=== PATIENT | male | born 1945 | race Caucasian/White ===

== ENCOUNTER 2018-05-16 10:20 | Outpatient (CLI) | payer MEDICARE, BC ==
--- NOTE | 2018-05-16 15:32 | MRI ---
RIGHT LOWER EXTREMITY MRI WITHOUT IV CONTRAST: HISTORY: A 72-year-old male with a history of right leg pain and right calf pain. History of blood clot, whic h has resolved. FINDINGS: There is some subtle T2 hyperintensity within the medial and lateral gastrocnemius muscles, as well a s the anterior compartment muscles, when compared to the soleus muscle. This is nonspecific but coul d conceivably represent some type of mild nonspecific myositis involving these muscle groups versus s ome associated denervation. No evidence for abscess or abnormal fluid collection. No evidence for m yonecrosis. The visualized tibia and fibula are unremarkable. IMPRESSION: Some nonspecific T2 hyperintensity within the medial and lateral gastrocnemius muscles, as well as th e anterior compartment musculature, nonspecific. This could possibly be seen in association with angelo e focal myositis versus some denervation. No evidence for intramuscular mass, abscess, or abnormal f luid collection. No evidence for myonecrosis. No abnormal marrow signal. POS: [facility]
== END 2018-05-16 10:21 | disposition home or self-care (01) ==
LOC: TBSIIMAG 10:20
PROVIDERS: ATTEND Family Medicine
DX: M79.604 Pain in right leg (principal); R93.7 Abnormal findings on diagnostic imaging of other parts of musculoskeletal system

== ENCOUNTER 2023-02-10 11:00 | Day surgery (SDC) | payer MEDICARE, BC ==
[2023-02-10] MEDS ORDERED: Lidocaine 1% (PF) 30 ML VIAL ONE (11:19)
[2023-02-10] MEDS ORDERED: fentaNYL 50 mcg/mL 1 mL Vial ONE (12:49)
[2023-02-10] MEDS ORDERED: Midazolam HCl 2 mg/2 ml Vial ONE (12:49)
[2023-02-10] MEDS ORDERED: Iopamidol 370 76% 100 ML VIAL ONE (15:04)
== END 2023-02-10 15:25 | disposition home or self-care (01) ==
LOC: SDC 11:00
PROVIDERS: ATTEND Internal Medicine Cardiovascular Disease
PROC: 06H03DZ Insertion of Intraluminal Device into Inferior Vena Cava, Percutaneous Approach (ICD-10-PCS; principal; 2023-02-10)
DX: I82.401 Acute embolism and thrombosis of unspecified deep veins of right lower extremity (principal); I10 Essential (primary) hypertension; E78.5 Hyperlipidemia, unspecified; Z87.891 Personal history of nicotine dependence; Z79.899 Other long term (current) drug therapy; Z88.6 Allergy status to analgesic agent
CPT/HCPCS: 37191; C1769; C1880; C1894; J3010; J2001; J2250; Q9967

== ENCOUNTER 2023-06-17 08:59 | Day surgery (SDC) | payer MEDICARE, BC ==
[2023-06-16 10:59] VITALS: BMI 24.4
[2023-06-17] MEDS ORDERED: Oxymetazoline HCl 0.05% (30 ML BOT) ONE (09:11)
[2023-06-17 09:20] LABS: Hematocrit 46.7 % (42.0-52.0); Hemoglobin 16.4 g/dL (14.0-18.0)
[2023-06-17 09:43] LABS: Anion Gap 16 mmol/L (10-20); BUN (Urea Nitrogen) 25 mg/dL (8.4-25.7); Calc. Creatinine Clearance 53 mL/min (70-130); Calcium 9.6 mg/dL (7.8-10.44); Carbon Dioxide 27 mmol/L (23-31); Chloride 98 mmol/L (98-107); Estimated GFR 51; Glucose 80 mg/dL (83-110); Potassium 3.9 mmol/L (3.5-5.1); Sodium 137 mmol/L (136-145)
[2023-06-17] MEDS ORDERED: EPINEPHrine 1 MG/ML VIAL ONE (09:57)
[2023-06-17] MEDS ORDERED: Triamcinolone 40 MG/ML VIAL ONE (09:57)
[2023-06-17] MEDS ORDERED: Lidocaine 1% (PF) 30 ML VIAL ONE (09:57)
[2023-06-17] MEDS ORDERED: PROPOFOL 20 ML ONE (09:57)
[2023-06-17] MEDS ORDERED: fentaNYL PF 100 MCG/2 ML SYRINGE ONE (09:57)
[2023-06-17] MEDS ORDERED: Lidocaine 1% PF 5 ML VIAL ONE ×2 (09:59→10:49)
[2023-06-17] MEDS ORDERED: Ondansetron PF 4 MG/2 ML Vial ONE ×2 (09:59→10:49)
[2023-06-17] MEDS ORDERED: Dexamethasone 4 mg/ml Vial ONE (09:59)
[2023-06-17] MEDS ORDERED: Lidocaine 2% 6 ML (Jelly) SYR ONE (10:06)
[2023-06-17] MEDS ORDERED: Dexamethasone 20 MG/5 ML VIAL ONE (10:49)
[2023-06-17] MEDS ORDERED: Rocuronium Bromide 10 MG/ML (10ML VIAL) ONE (10:49)
[2023-06-17] MEDS ORDERED: PROPOFOL 200 MG/20 ML VIAL ONE (10:49)
[2023-06-17] MEDS ORDERED: SUGAMMADEX SODIUM 200 MG/2 ML VIAL ONE (11:17)
== END 2023-06-17 13:10 | disposition home or self-care (01) ==
LOC: SDC 08:59
PROVIDERS: ATTEND Specialist
PROC: 09TR8ZZ Resection of Left Maxillary Sinus, Via Natural or Artificial Opening Endoscopic (ICD-10-PCS; principal; 2023-06-17)
PROC: 09TQ8ZZ Resection of Right Maxillary Sinus, Via Natural or Artificial Opening Endoscopic (ICD-10-PCS; 2023-06-17)
PROC: 09TL8ZZ Resection of Nasal Turbinate, Via Natural or Artificial Opening Endoscopic (ICD-10-PCS; 2023-06-17)
DX: J32.0 Chronic maxillary sinusitis (principal); J34.3 Hypertrophy of nasal turbinates; Z79.899 Other long term (current) drug therapy
CPT/HCPCS: 30140; 31267; 80048; 85014; 85018; 93005; J0171; 93010; J1100; J2001; J2405; J2704; J3301

== ENCOUNTER 2024-04-28 09:34 | Inpatient (IN) | payer MEDICARE, BC ==
[2024-04-28] MEDS ORDERED: Acetaminophen 325 MG TAB PO PRN (13:59)
[2024-04-28] MEDS: Calcium Carbonate 500 MG ChewTAB PO PRN (14:40)
[2024-04-28] MEDS: HYDROcodone/Acetaminophen 5/325 mg Tablet PO PRN (14:54)
[2024-04-28] MEDS: Pantoprazole DR 40 MG TAB PO SCH (15:19)
[2024-04-28] MEDS: diphenhydrAMINE 25 MG CAP PO PRN (15:19)
[2024-04-28] MEDS: Furosemide 20 MG (2 mL) VIAL SLOW IVP SCH (15:20)
[2024-04-28 15:38] LABS: #Basophils 0.03 10x3/uL (0.0-0.2); %Basophils 0.3 % (0.0-1.0); %Eosinophils 2.6 % (0.0-10.0); %Lymphocytes 19.1 % (21.0-51.0); %Monocytes 8.5 % (0.0-10.0); %Neutrophils 68.4 % (42.0-75.0); Hematocrit 35.9 % (42.0-52.0); Hemoglobin 12.3 g/dL (14.0-18.0); Mean Corpuscular HGB CONC 34.3 g/dL (32.0-36.0); Mean Corpuscular Hemoglobin 33.7 pg (27.0-31.0); Mean Corpuscular Volume 98.4 fL (78.0-98.0); Mean Platelet Volume 10.3 fL (7.4-10.4); Platelet Count 200 10x3/uL (130-400); RBC Distribution Width 14.5 % (11.5-14.5); Red Blood Cell (RBC) Count 3.65 mill/uL (4.70-6.10)
[2024-04-28 15:59] LABS: ALT (SGPT) 36 U/L (8-55); AST (SGOT) 30 U/L (5-34); Albumin 2.6 g/dL (3.4-4.8); Alkaline Phosphatase 70 U/L (40-110); Anion Gap 15 mmol/L (10-20); BUN (Urea Nitrogen) 23 mg/dL (8.4-25.7); Bilirubin, Total 0.6 mg/dL (0.2-1.2); Calc. Creatinine Clearance 64 mL/min (70-130); Carbon Dioxide 20 mmol/L (23-31); Chloride 107 mmol/L (98-107); Estimated GFR 59; Globulin 3.8 g/dL (2.4-3.5); Glucose 88 mg/dL (83-110); Potassium 3.7 mmol/L (3.5-5.1); Protein, Total 6.4 g/dL (5.8-8.1); Sodium 138 mmol/L (136-145)
[2024-04-28] MEDS: Simethicone Chewable 80 MG TAB PO PRN (16:08)
[2024-04-28 16:29] LABS: Bilirubin Negative (Negative); Blood, Urine 2+ (Negative); CAUTI Indications for Culture Dysuria,urgency,freq; Clarity Clear (Clear); Glucose, Urine (Dipstick) Normal (Negative); Ketone, Urine Trace mg/dL (Negative); Leukocyte 250 Leu/uL (Negative); Nitrite Negative (Negative); Protein, Urine (Dipstick) Negative (Neg-Trace); Specific Gravity, Urine 1.002 (1.002-1.036); Squamous Epithelial 0-3 HPF (0-3); Urobilinogen Normal mg/dL (Less than 2)
[2024-04-28 16:31] LABS: Bacteria/HPF 1+ HPF (None Seen)
[2024-04-28 16:32] LABS: Urine Culture Reflex No No
[2024-04-28] MEDS: Amiodarone 200 MG TAB PO SCH ×2 (17:48→21:02)
[2024-04-28] MEDS: Morphine 2 MG/ML VIAL SLOW IVP PRN (17:48)
[2024-04-28] MEDS: diphenhydrAMINE 50 MG/ML VIAL IVP SCH (17:49)
[2024-04-28] MEDS: Ondansetron ODT 4 MG TAB PO PRN (17:58)
[2024-04-28] MEDS ORDERED: Famotidine 20 MG TAB PO SCH (21:00)
[2024-04-28] MEDS ORDERED: Apixaban 2.5 MG TAB PO SCH (21:00)
[2024-04-28] MEDS: Nitrofurantoin Monohyd/M-Cryst 100 MG CAP PO SCH (21:02)
[2024-04-28] MEDS: Docusate 100 MG CAP PO SCH (21:02)
[2024-04-28] MEDS: Apixaban 2.5 MG TAB PO SCH (21:02)
[2024-04-28] MEDS: traZODone HCl 50 MG TAB PO PRN (21:02)
[2024-04-29 04:02] LABS: #Basophils Less than 0.03 10x3/uL (0.0-0.2); %Basophils 0.2 % (0.0-1.0); %Eosinophils 1.9 % (0.0-10.0); %Lymphocytes 18.3 % (21.0-51.0); %Monocytes 9.8 % (0.0-10.0); Hematocrit 32.6 % (42.0-52.0); Hemoglobin 11.1 g/dL (14.0-18.0); Mean Corpuscular Hemoglobin 32.7 pg (27.0-31.0); Mean Corpuscular Volume 96.2 fL (78.0-98.0); Mean Platelet Volume 10.6 fL (7.4-10.4); Platelet Count 206 10x3/uL (130-400); RBC Distribution Width 14.4 % (11.5-14.5); Red Blood Cell (RBC) Count 3.39 mill/uL (4.70-6.10)
[2024-04-29 04:14] LABS: ALT (SGPT) 35 U/L (8-55); AST (SGOT) 31 U/L (5-34); Albumin 2.4 g/dL (3.4-4.8); Alkaline Phosphatase 63 U/L (40-110); Anion Gap 17 mmol/L (10-20); BUN (Urea Nitrogen) 24 mg/dL (8.4-25.7); Bilirubin, Total 0.5 mg/dL (0.2-1.2); Calc. Creatinine Clearance 65 mL/min (70-130); Calcium 8.9 mg/dL (7.8-10.44); Carbon Dioxide 19 mmol/L (23-31); Chloride 107 mmol/L (98-107); Estimated GFR 60; Globulin 3.4 g/dL (2.4-3.5); Glucose 82 mg/dL (83-110); Potassium 3.4 mmol/L (3.5-5.1); Protein, Total 5.8 g/dL (5.8-8.1); Sodium 140 mmol/L (136-145)
[2024-04-29] MEDS: Tamsulosin HCl 0.4 MG CAP PO SCH (08:42)
[2024-04-29] MEDS: Losartan 25 MG TAB PO SCH (08:42)
[2024-04-29] MEDS: Pantoprazole DR 40 MG TAB PO SCH (08:43)
[2024-04-29] MEDS: Dutasteride 0.5 MG CAP PO SCH (08:43)
[2024-04-29] MEDS: Hydrochlorothiazide 25 MG TAB PO SCH (08:43)
[2024-04-29] MEDS: Atorvastatin Calcium 10 MG TAB PO SCH (08:44)
[2024-04-29] MEDS: Multivitamin W/ Minerals 1 TAB PO SCH (08:44)
[2024-04-29] MEDS: Polyethylene Glycol 3350 17 GM Packet PO SCH (08:44)
[2024-04-29] MEDS: Potassium Chloride 20 MEQ TAB PO SCH (08:55)
[2024-04-29] MEDS: FLU (Fluad Triv) TS24-25 (65UP)/MF59C/PF 45 MCG/0.5 ML Syringe IM ONE (08:56)
[2024-04-29] MEDS ORDERED: Enoxaparin 40 MG (0.4 mL) SYRINGE SC SCH (09:00)
[2024-04-29] MEDS ORDERED: Methylcellulose 500 MG TAB PO SCH (09:00)
[2024-04-29] MEDS: cefTRIAXone\\ROCEPHIN 1 GM in Sodium Chloride 0.9% 100 ML IVPB SCH (11:03)
[2024-04-29] MEDS: Lidocaine 1% PF 5 ML VIAL FS SCH (11:04)
[2024-04-29] MEDS: cefTRIAXone (ROCEPHIN) 1 GM VIAL IM SCH (11:04)
[2024-04-29] MEDS: HYDROmorphone 0.5 MG/0.5 ML SYRINGE SLOW IVP SCH (16:18)
[2024-04-29] MEDS: HYDROmorphone 1 MG/ML SYRINGE SLOW IVP SCH (16:29)
[2024-04-29] MEDS ORDERED: Labetalol HCl 100 MG/20 ML VIAL SLOW IVP PRN (17:47)
[2024-04-29] MEDS: Famotidine 20 MG TAB PO SCH (20:48)
[2024-04-30 06:58] LABS: #Basophils Less than 0.03 10x3/uL (0.0-0.2); %Basophils 0.2 % (0.0-1.0); %Eosinophils 3.7 % (0.0-10.0); %Lymphocytes 25.2 % (21.0-51.0); %Monocytes 11.6 % (0.0-10.0); Hematocrit 33.3 % (42.0-52.0); Hemoglobin 11.3 g/dL (14.0-18.0); Mean Corpuscular HGB CONC 33.9 g/dL (32.0-36.0); Mean Corpuscular Hemoglobin 33.3 pg (27.0-31.0); Mean Corpuscular Volume 98.2 fL (78.0-98.0); Mean Platelet Volume 10.2 fL (7.4-10.4); Platelet Count 230 10x3/uL (130-400); RBC Distribution Width 14.4 % (11.5-14.5); Red Blood Cell (RBC) Count 3.39 mill/uL (4.70-6.10)
[2024-04-30 07:15] LABS: ALT (SGPT) 38 U/L (8-55); AST (SGOT) 39 U/L (5-34); Albumin 2.5 g/dL (3.4-4.8); Alkaline Phosphatase 58 U/L (40-110); Anion Gap 15 mmol/L (10-20); BUN (Urea Nitrogen) 18 mg/dL (8.4-25.7); Bilirubin, Total 0.4 mg/dL (0.2-1.2); Calc. Creatinine Clearance 84 mL/min (70-130); Calcium 9.2 mg/dL (7.8-10.44); Carbon Dioxide 20 mmol/L (23-31); Chloride 107 mmol/L (98-107); Estimated GFR 80; Globulin 3.6 g/dL (2.4-3.5); Glucose 105 mg/dL (83-110); Potassium 3.9 mmol/L (3.5-5.1); Protein, Total 6.1 g/dL (5.8-8.1); Sodium 138 mmol/L (136-145)
[2024-04-30] MEDS: traZODone HCl 50 MG TAB PO SCH (20:55)
[2024-04-30] MEDS: Apixaban 5 MG TAB PO SCH (20:56)
[2024-04-30] MEDS ORDERED: Apixaban 2.5 MG TAB PO SCH (21:00)
[2024-05-01 05:27] LABS: #Basophils Less than 0.03 10x3/uL (0.0-0.2); %Basophils 0.2 % (0.0-1.0); %Eosinophils 3.9 % (0.0-10.0); %Lymphocytes 22.6 % (21.0-51.0); %Monocytes 10.6 % (0.0-10.0); %Neutrophils 61.4 % (42.0-75.0); Hematocrit 29.8 % (42.0-52.0); Hemoglobin 10.1 g/dL (14.0-18.0); Mean Corpuscular HGB CONC 33.9 g/dL (32.0-36.0); Mean Corpuscular Hemoglobin 32.5 pg (27.0-31.0); Mean Corpuscular Volume 95.8 fL (78.0-98.0); Mean Platelet Volume 10.6 fL (7.4-10.4); Platelet Count 259 10x3/uL (130-400); RBC Distribution Width 14.4 % (11.5-14.5); Red Blood Cell (RBC) Count 3.11 mill/uL (4.70-6.10)
[2024-05-01 05:44] LABS: ALT (SGPT) 34 U/L (8-55); AST (SGOT) 28 U/L (5-34); Albumin 2.2 g/dL (3.4-4.8); Alkaline Phosphatase 53 U/L (40-110); Anion Gap 11 mmol/L (10-20); BUN (Urea Nitrogen) 17 mg/dL (8.4-25.7); Bilirubin, Total 0.3 mg/dL (0.2-1.2); Calc. Creatinine Clearance 65 mL/min (70-130); Calcium 8.4 mg/dL (7.8-10.44); Carbon Dioxide 25 mmol/L (23-31); Chloride 107 mmol/L (98-107); Estimated GFR 59; Globulin 2.9 g/dL (2.4-3.5); Glucose 107 mg/dL (83-110); Protein, Total 5.1 g/dL (5.8-8.1); Sodium 140 mmol/L (136-145)
[2024-05-01 07:46] LABS: Magnesium 1.5 mg/dL (1.6-2.6); Phosphorus 3.3 mg/dL (2.3-4.7)
[2024-05-01] MEDS: Potassium Chloride 20 MEQ TAB PO SCH (09:48)
[2024-05-01] MEDS: predniSONE 20 MG TAB PO SCH (09:49)
[2024-05-01 15:36] VITALS: BMI 25.4
[2024-05-01] MEDS: Magnesium 2 GM/50 ML(in water) 2 GM in Premix 1 BAG IVPB SCH (15:41)
[2024-05-01] MEDS: Magnesium Oxide 400 MG TAB PO SCH ×2 (15:59→20:41)
[2024-05-01] MEDS: Amiodarone 200 MG TAB PO SCH (20:41)
[2024-05-02 04:46] LABS: #Basophils 0.03 10x3/uL (0.0-0.2); %Basophils 0.3 % (0.0-1.0); %Eosinophils 1.1 % (0.0-10.0); %Lymphocytes 19.4 % (21.0-51.0); %Monocytes 8.7 % (0.0-10.0); %Neutrophils 69.3 % (42.0-75.0); Hemoglobin 9.9 g/dL (14.0-18.0); Mean Corpuscular HGB CONC 34.1 g/dL (32.0-36.0); Mean Corpuscular Hemoglobin 32.9 pg (27.0-31.0); Mean Corpuscular Volume 96.3 fL (78.0-98.0); Mean Platelet Volume 10.6 fL (7.4-10.4); Platelet Count 302 10x3/uL (130-400); RBC Distribution Width 14.5 % (11.5-14.5); Red Blood Cell (RBC) Count 3.01 mill/uL (4.70-6.10)
[2024-05-02 05:02] LABS: ALT (SGPT) 35 U/L (8-55); AST (SGOT) 26 U/L (5-34); Albumin 2.4 g/dL (3.4-4.8); Alkaline Phosphatase 54 U/L (40-110); Anion Gap 10 mmol/L (10-20); BUN (Urea Nitrogen) 17 mg/dL (8.4-25.7); Bilirubin, Total 0.3 mg/dL (0.2-1.2); Calc. Creatinine Clearance 63 mL/min (70-130); Calcium 8.7 mg/dL (7.8-10.44); Carbon Dioxide 26 mmol/L (23-31); Chloride 106 mmol/L (98-107); Estimated GFR 60; Globulin 3.2 g/dL (2.4-3.5); Glucose 109 mg/dL (83-110); Magnesium 1.8 mg/dL (1.6-2.6); Potassium 3.4 mmol/L (3.5-5.1); Protein, Total 5.6 g/dL (5.8-8.1); Sodium 139 mmol/L (136-145)
[2024-05-02] MEDS: predniSONE 20 MG TAB PO SCH (06:07)
[2024-05-02] MEDS: Potassium Chloride 20 MEQ TAB PO SCH ×2 (06:07→12:01)
[2024-05-02 06:12] VITALS: BMI 13.7
[2024-05-02 06:30] LABS: Magnesium 1.8 mg/dL (1.6-2.6); Phosphorus 3.1 mg/dL (2.3-4.7)
[2024-05-02 07:59] VITALS: BP 120/69
[2024-05-02] MEDS ORDERED: Magnesium Oxide 400 MG TAB PO SCH (09:00)
[2024-05-02] MEDS ORDERED: Colchicine 0.6 MG TAB PO SCH (09:00)
[2024-05-02] MEDS: Colchicine 0.6 MG TAB PO SCH (09:07)
[2024-05-02 11:43] VITALS: TEMP 98.2
== END 2024-05-02 14:48 | disposition home health service (06) | DRG 291 ==
LOC: 2SW 12:05 → INTOOBSV 12:05 → OBSVTOIN 14:24 → 2SE 04-29 19:40
PROVIDERS: ADMIT Internal Medicine; ATTEND Family Medicine
DX: I11.0 Hypertensive heart disease with heart failure (principal); I50.33 Acute on chronic diastolic (congestive) heart failure; T83.511A Infection and inflammatory reaction due to indwelling urethral catheter, initial encounter; I48.19 Other persistent atrial fibrillation; G47.00 Insomnia, unspecified; Z86.718 Personal history of other venous thrombosis and embolism; E78.5 Hyperlipidemia, unspecified; K21.9 Gastro-esophageal reflux disease without esophagitis; M19.90 Unspecified osteoarthritis, unspecified site; M10.9 Gout, unspecified; I35.1 Nonrheumatic aortic (valve) insufficiency; E87.6 Hypokalemia; N40.1 Benign prostatic hyperplasia with lower urinary tract symptoms; Z88.8 Allergy status to other drugs, medicaments and biological substances; Z79.01 Long term (current) use of anticoagulants; Z79.899 Other long term (current) drug therapy; Z98.890 Other specified postprocedural states
CPT/HCPCS: 36415; 80053; 81001; 83735; 83880; 84100; 85025; 87086; 90653; 97139; J0696; J1170; J1200; J1940; J2272; J3475; J7512; Q0162